=== PATIENT | male | born 1995 | race Caucasian/White ===

== ENCOUNTER 2023-10-04 11:52 | Emergency (ER) | payer OTHER ==
[2023-10-04 12:45] LABS: BASOPHILS % (AUTO) 0.8 %; EOSINOPHILS # (AUTO) 0.1 10^3/uL (0.0-0.7); EOSINOPHILS % (AUTO) 2.7 %; HCT - HEMATOCRIT 40.1 % (42.0-52.0); HGB - HEMOGLOBIN 13.1 g/dL (14.0-18.0); LYMPHOCYTES # (AUTO) 1.7 10^3/uL (1.5-3.5); LYMPHOCYTES % (AUTO) 35.1 %; MEAN CORPUSCULAR HEMOGLOBIN 27.9 pg (27.0-31.0); MEAN CORPUSCULAR HGB CONC 32.7 g/dL (32.0-36.0); MEAN CORPUSCULAR VOLUME 85.5 fL (80.0-94.0); MEAN PLATELET VOLUME 11.1 fL (7.4-11.4); MONOCYTES # (AUTO) 0.4 10^3/uL (0.0-1.0); MONOCYTES % (AUTO) 8.9 %; NEUTROPHILS # (AUTO) 2.5 10^3/uL (1.5-6.6); NEUTROPHILS % (AUTO) 52.3 %; PLT - PLATELET COUNT 214 10^3/uL (130-450); RED BLOOD COUNT 4.69 10^6/uL (4.70-6.10); RED CELL DISTRIBUTION WIDTH 13.1 % (12.0-15.0); WHITE BLOOD COUNT 4.8 x10^3/uL (4.8-10.8)
--- NOTE | 2023-10-04 13:03 | ED Physician Documentation ---
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 Just before arrival patient states that he was at his work when he had a syncopal event. 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 He then walked back in and per coworker who was next to him saw him stop walking and stand there for second about 2 grab a phone from another coworker when then he fell down to the ground. It he had LOC for approximately 10 seconds. He did hit his head. There is no witnessed seizure activity. No incontinence, tongue biting or postictal period. Patient reportedly then wanted to try and get back up but when he tried to do so started feeling lightheaded and sat back down. Denies a history of similar symptoms in the past. He did have a breakfast and went around 6:00 this morning and then also worked out today with 30 minutes on an exercise bike. Denies family history of early coronary artery disease, syncope, aneurysms. Denies recent illness. No vomiting or diarrhea. Denies drug or alcohol use. Review of Systems Constitutional: denies: Fever Cardiac: denies: Chest pain / pressure Respiratory: denies: Dyspnea GI: denies: Abdominal Pain Neurologic: reports: Syncope, Headache, Head injury PD PAST MEDICAL HISTORY - Past Medical History Past Medical History: No Cardiovascular: None Respiratory: None Neuro: None Endocrine/Autoimmune: None GI: None : None HEENT: None Psych: None Musculoskeletal: None Derm: None - Past Surgical History Past Surgical History: Yes - Present Medications Home Medications: Ambulatory Orders Medication Instructions Recorded Confirmed Cetirizine HCl [Zyrtec] 10 mg PO DAILY 10/04/23 10/04/23 - Allergies Allergies/Adverse Reactions: Allergies Allergy/AdvReac Type Severity Reaction Status Date / Time No Known Drug Allergies Allergy Verified 10/04/23 12:05 - Social History Does the pt smoke?: No Smoking Status: Never smoker Does the pt drink ETOH?: Yes Does the pt have substance abuse?: No - Immunizations Immunizations are current?: Yes - POLST Patient has POLST: No PD ED PE NORMAL - General General: Alert and oriented X 3, No acute distress, Well developed/nourished - HEENT HEENT: Atraumatic, PERRL, EOMI, Moist mucous membranes, Pharynx benign - Neck Neck: Supple, no meningeal sign, No bony TTP, C-Spine cleared by NEXUS criteria - Cardiac Cardiac: RRR, Strong equal pulses - Respiratory Respiratory: No respiratory distress, Clear bilaterally - Abdomen Abdomen: Normal bowel sounds, Soft, Non tender, Non distended - Derm Derm: Warm and dry - Extremities Extremities: No deformity - Neuro Neuro: Alert and oriented X 3, automotive service consultant 2-12 intact, No motor deficit, No sensory deficit, Normal speech Results - Vitals Vitals: Vital Signs - 24 hr 10/04/23 10/04/23 10/04/23 12:05 12:47 13:03 Temperature 36.7 C Heart Rate 81 71 Heart Rate [ 76 Sitting] Heart Rate [ 80 Standing] Heart Rate [ 76 Supine] Respiratory 14 17 Rate Blood Pressure 125/78 148/69 H Blood Pressure 116/81 H [Sitting] Blood Pressure 112/86 H [Standing] Blood Pressure 113/65 [Supine] O2 Saturation 96 100 10/04/23 10/04/23 14:19 15:24 Temperature Heart Rate 71 73 Heart Rate [ Sitting] Heart Rate [ Standing] Heart Rate [ Supine] Respiratory 17 17 Rate Blood Pressure 152/84 H 125/73 Blood Pressure [Sitting] Blood Pressure [Standing] Blood Pressure [Supine] O2 Saturation 99 100 Oxygen O2 Source Room air - EKG (time done) 1243 EKG releavant findings:: EKG personally interpreted by author of this note. Relevant findings are: Rate 74, normal sinus rhythm, no STEMI, QTc 417 - Labs Labs: Laboratory Tests 10/04/23 10/04/23 12:38 12:38 WBC 4.8 RBC 4.69 L Hgb 13.1 L Hct 40.1 L MCV 85.5 MCH 27.9 MCHC 32.7 RDW 13.1 Plt Count 214 MPV 11.1 Neut # (Auto) 2.5 Lymph # (Auto) 1.7 [place] # (Auto) 0.4 Eos # (Auto) 0.1 Baso # (Auto) 0.0 Absolute Nucleated RBC 0.00 Nucleated RBC % 0.0 Sodium 138 Potassium 3.9 Chloride 104 Carbon Dioxide 29 Anion Gap 5.0 L BUN 14 Creatinine 1.0 Estimated GFR (MDRD) 90 Glucose 97 Calcium 9.2 Total Bilirubin 0.4 AST 27 ALT 48 Alkaline Phosphatase 49 Troponin I High Sens < 2.3 L Total Protein 7.5 Albumin 4.4 Globulin 3.1 Albumin/Globulin Ratio 1.4 Lipase 16 PD Medical Decision Making - ED course Complexity details: reviewed results, re-evaluated patient, d/w patient ED course: Pt is a 28 yo M with syncope. No significant past medical history. [place] light headed trying to stand again after event. EKG reviewed with no arrhythmia. VSS. Pt did have a head injury and initially complained of a severe headache thus CT head obtained - no hemorrhage. Normal neuro exam. CBC, chemistries, troponin reviewed and with no abnormalities. Chest XR with normal heart size. Orthostatics negative. Pt asymptomatic here with no events on monitor. 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 Pt counseled on concerning symptoms to return for. Departure - Departure Disposition: 01 Home, Self Care Clinical Impression: Syncope, Head injury Condition: Stable Instructions: ED Head Injury Closed, ED Fainting Unkn Cause Follow-Up: DOTTIE Parra [Provider Group] - Within 1 week Comments: You were evaluated after a fainting spell. Your EKG does not show any irregular rhythms and your heart rate and blood pressure did not change significantly when we changed you from a laying down to standing position. Your labs are also reassuring with no signs of electrolyte issues, Anemia or heart problem. Your chest x-ray is clear. A CT scan of your head also does not show any significant findings. I do think you should have close follow-up with the [employer] base regarding your symptoms today. In the meanwhile would recommend taking it easy with no exertion such as gym workouts until you are seen for follow-up. Please make sure you take it easy when changing positions. Make sure you are staying hydrated. Return to the ER with any worsening symptoms. Forms: PCP List, Activity restrictions Discharge Date/Time: 10/04/23 15:24
[2023-10-04 13:31] LABS: CARBON DIOXIDE - CO2 29 mmol/L (21-32); GLUCOSE 97 mg/dL (74-104)
[2023-10-04 13:32] LABS: ALT ALANINE AMINOTRANSFERASE 48 IU/L (10-60); AST ASPARTATE AMINOTRANSFERASE 27 IU/L (10-42); BILIRUBIN,TOTAL 0.4 mg/dL (0.2-1.0); BUN - BLOOD UREA NITROGEN 14 mg/dL (6-20); CALCIUM 9.2 mg/dL (8.5-10.3); CHLORIDE 104 mmol/L (101-111); GFR - MDRD 90 (>89); POTASSIUM 3.9 mmol/L (3.5-4.5); SODIUM 138 mmol/L (135-145)
[2023-10-04 13:33] LABS: ALBUMIN 4.4 g/dL (3.2-5.5); ALBUMIN/GLOBULIN RATIO 1.4 (1.0-2.2); ALKALINE PHOSPHATASE 49 IU/L (42-121); TOTAL PROTEIN 7.5 g/dL (6.4-8.9)
[2023-10-04 13:34] LABS: TROPONIN I HIGH SENSITIVITY < 2.3 ng/L (2.3-19.7)
[2023-10-04 13:43] LABS: LIPASE 16 U/L (11-82)
[2023-10-04] MEDS: ACETAMINOPHEN 325 MG TABLET PO STA (14:18)
--- NOTE | 2023-10-04 14:23 | XRAY Report ---
PROCEDURE: Chest 1V INDICATIONS: syncope TECHNIQUE: One view of the chest was acquired. COMPARISON: None. FINDINGS: Surgical changes and devices: None. Lungs and pleura: No pleural effusions or pneumothorax. Lung volumes are slightly low, but lungs are otherwise clear. Mediastinum: Mediastinal contours appear normal. Heart size is normal. Bones and chest wall: No suspicious bony lesions. Overlying soft tissues appear unremarkable. IMPRESSION: Lung volumes are slightly low, but lungs are otherwise clear. Reviewed by: Radha Solomon MD on 10/04/2023 2:22 PM PST Approved by: Radha Solomon MD on 10/04/2023 2:22 PM PST Station ID: [id number]
--- NOTE | 2023-10-04 14:59 | CT Report ---
PROCEDURE: Head WO INDICATIONS: head injury/syncope/bad headache TECHNIQUE: Noncontrast 4.5 mm thick angled axial sections acquired from the foramen magnum to the vertex. For r adiation dose reduction, the following was used: automated exposure control, adjustment of mA and/or kV according to patient size. COMPARISON: None. FINDINGS: Image quality: Diagnostic CSF spaces: Basal cisterns are patent. Lateral ventricles are symmetric. Volume: Generally maintained Brain: No intracranial hemorrhage. Bains-white differentiation is grossly maintained. Craniofacial structures: Mild to moderate paranasal sinus mucosal thickening. IMPRESSION: No acute intracranial abnormality. If there is high concern for parenchymal pathology, consider furth er evaluation with MRI. Mild to moderate paranasal sinus mucosal thickening. Reviewed by: Jadon Rob MD on 10/04/2023 2:58 PM PST Approved by: Jadon Rob MD on 10/04/2023 2:58 PM [facility] Station ID: [id number]
[2023-10-04 15:30] VITALS: BP 125/73; O2SAT 100
== END 2023-10-04 15:24 | disposition home or self-care (01) ==
LOC: EDUNIT# → ED 11:52
DX: R55 Syncope and collapse (principal); S09.90XA Unspecified injury of head, initial encounter; W18.39XA Other fall on same level, initial encounter; Y93.01 Activity, walking, marching and hiking; Y92.139 Unspecified place military base as the place of occurrence of the external cause; Y99.1 Military activity
CPT/HCPCS: 36415; 70450; 71045; 80053; 83690; 84484; 85025; 93005; 99284; A9270

== ENCOUNTER 2023-10-10 09:42 | Emergency (ER) | payer OTHER ==
--- NOTE | 2023-10-10 10:12 | ED Physician Documentation ---
PD HPI HEAD INJURY - Stated complaint Stated Complaint: FAINTING EPISODE - Chief complaint Chief Complaint: Trauma Hd/Nk - History obtained from History obtained from: Patient - History of Present Illness Mechanism of head injury: Other (near syncope/syncope.) Where head injury occurred: Work (he states he was walking quickly down [address] and turned corner quickly. He believes he slipped and fell, striking left side of head on floor and face was scraped by zipper on his jacket that rubbged as he fell. Brief LOC or dazed, but just few seconds.) Timing - onset: How many hours ago (1) Location of injury: Left, Back Quality of pain: Throbbing, Aching Associated symptoms: LOC (possibly seconds versus just dazed.) Symptoms worsen with: Palpation Contributing factors: No: Anticoagulated Similar symptoms before: Has not had sx before (had a brief syncope in recent past, with normal ECG and labs, felt to be quick change of position, vasovagal. Has felt okay in the interval without exertional dyspnea nor chest pain, near syncope. He denies symptoms prior to falling today.) Review of Systems Constitutional: denies: Fever, Chills Nose: denies: Rhinorrhea / runny nose, Congestion Throat: denies: Sore throat Cardiac: denies: Chest pain / pressure, Palpitations Respiratory: denies: Dyspnea, Cough GI: denies: Nausea, Vomiting, Diarrhea PD PAST MEDICAL HISTORY - Past Medical History Cardiovascular: None Respiratory: None Neuro: None Endocrine/Autoimmune: None GI: None : None HEENT: None Psych: None Musculoskeletal: None Derm: None - Past Surgical History Past Surgical History: Yes - Present Medications Home Medications: Ambulatory Orders Medication Instructions Recorded Confirmed Cetirizine HCl [Zyrtec] 10 mg PO DAILY 10/04/23 10/10/23 - Allergies Allergies/Adverse Reactions: Allergies Allergy/AdvReac Type Severity Reaction Status Date / Time No Known Drug Allergies Allergy Verified 10/10/23 09:48 - Social History Does the pt smoke?: No Smoking Status: Never smoker Does the pt drink ETOH?: Yes Does the pt have substance abuse?: No - Immunizations Immunizations are current?: Yes - POLST Patient has POLST: No PD ED PE NORMAL - Vitals Vital signs reviewed: Yes - General General: Alert and oriented X 3, No acute distress, Well developed/nourished - HEENT HEENT: PERRL, EOMI, Other (left cheeek with abrasion without FB nor bleeding. ) - Neck Neck: Supple, no meningeal sign, No bony TTP, No adenopathy - Cardiac Cardiac: RRR, No murmur - Respiratory Respiratory: Clear bilaterally - Abdomen Abdomen: Soft, Non tender - Derm Derm: Normal color, Warm and dry - Neuro Neuro: Alert and oriented X 3, lean leader 2-12 intact, No motor deficit, No sensory deficit, Normal speech Eye Opening: Spontaneous Motor: Obeys Commands Verbal: Oriented GCS Score: 15 Results - Vitals Vitals: Oxygen O2 Source Room air - EKG (time done) 10:05 EKG releavant findings:: EKG personally interpreted by author of this note. Relevant findings are: Rate: Rate (enter#) (74) Rhythm: NSR [place]: Normal Intervals: Normal [place] Ischemia: Normal ST segments, ST elevation c/w repol. No: ST elevation c/w ischemia, ST depression Compare to prior EKG: Unchanged from prior EKG PD Medical Decision Making - ED course Complexity details: reviewed results, considered differential (slip and fall with concussive type symptoms of brief LOC and dazed. Not having concussive symptoms now and can forego imaging per NEXUS head rules. Does not sound like syncope as he remembers the act of falling and striking his head. ), d/w patient Departure - Departure Disposition: 01 Home, Self Care Clinical Impression: Fall from slip, trip, or stumble, Facial contusion, Head injury, closed, with brief LOC Condition: Stable Record reviewed to determine appropriate education?: Yes Follow-Up: MARANDA CORDERO DO [Primary Care Provider] - Comments: The event today sounds like a very brief concussive affect from falling and hitting your face. You do not have any persisting concussive symptoms. Your description of the event with the memory of it sounds different than your fainting episode last week. At this point I feel you are okay. Your EKG and heart rhythm and blood pressure and oxygenation are good. Rest today without any vigorous activity. Tylenol or ibuprofen if needed for pains. Stay well-hydrated. Return to normal activity tomorrow feeling well. Forms: PCP List Discharge Date/Time: 10/10/23 10:54
[2023-10-10 10:57] VITALS: BP 116/86; O2SAT 98
== END 2023-10-10 10:54 | disposition home or self-care (01) ==
LOC: ED 09:42
DX: S06.9X1A Unspecified intracranial injury with loss of consciousness of 30 minutes or less, initial encounter (principal); W10.9XXA Fall (on) (from) unspecified stairs and steps, initial encounter
CPT/HCPCS: 93005; 99283; 99284